=== PATIENT | female | born 1985 | race Caucasian/White ===

== ENCOUNTER 2020-07-31 13:30 | Emergency (ER) | payer BC, SELFPAY ==
[2020-07-31 13:50] VITALS: BP 128/72; PULSE 97; RESP 16; TEMP 36.7; O2SAT 99
--- NOTE | 2020-07-31 14:01 | ED.EAR ---
HPI - Ear Problem General Chief complaint: Ear Stated complaint: earache/facial pain Time Seen by Provider: 07/31/20 13:31 Source: patient Mode of arrival: ambulatory Limitations: no limitations History of Present Illness HPI Narrative: 34-year-old female presents to [facility] with complaints of right ear pain, sinus pressure, runny nose and intermittent fevers for the past week. Patient reports long history of ear infections and has seen ENT in the past. Patient reports that they have discussed placing ear tubes. Patient has been taking [id number] Sudafed with minimal relief. Patient denies cough, wheezing, shortness of breath, nausea, vomiting or diarrhea. MD Complaint: ear pain Location: right ear Duration: constant Severity: mild Discharge from ear: Reports no Treatment prior to arrival: none Related Data Allergies Allergy/AdvReac Type Severity Reaction Status Date / Time No Known Allergies Allergy Verified 07/31/20 13:51 Review of Systems Constitutional: Constitutional: Denies chills, Reports fever(s) and Denies weakness ENT: Denies dysphagia, Denies dizziness, Denies epistaxis and Denies sore throat Comments: Rhinorrhea, right ear pain Respiratory: Respiratory: Denies chest congestion, Denies cough, Denies dyspnea and Denies wheezing Gastrointestinal: Gastrointestinal: Denies abdominal pain, Denies diarrhea, Denies nausea and Denies vomiting Integumentary/Breasts: Skin/Breast: Denies rash PMFSH Past Medical History Medical History (Updated 07/31/20 @ 14:08 by Marie Decker APRN) Cholecystectomy planned Social History Social History (Updated 07/31/20 @ 14:04 by Marie Decker APRN) Smoking status: Never smoker Comments At time of signature, I agree with nursing past medical, surgical, social and family history. There is no relevant family history pertinent to the presenting complaint. Exam Const: General: no acute distress and alert Nutritional Appearance: well nourished Orientation/consciousness: patient oriented x3 HENMT: Head: normal to inspection Ears: TM abnormal with fluid behind the TM on the right; not dull, not erythematous, with no loss of landmarks, with no myringotomy tubes present, not obstructed by cerumen, not perforated, not retracted, not scarred and mobile General nose exam: Normal external nose present and Normal nares present Face and sinus: sinuses nontender Mouth: Yes lip normal and Yes moist mucous membranes Throat: posterior oropharynx normal and uvula midline Neck: Neck: normal visual inspection Resp: Effort & Inspection: normal respiratory effort, not labored, not tachypneic and no use of accessory muscles Auscultation: clear to auscultation bilaterally and no wheezes Cardio: Rate: regular rate Rhythm: regular rhythm Skin: General skin exam: normal color, no jaundice and no pallor Rashes: no rashes Wounds: no wounds Neuro: General: patient oriented x3, moves all extremities and no meningeal signs Psych: Appearance: grossly normal Mental Status: mental status grossly normal Affect: normal affect Attitude: cooperative Thought content: Yes Normal thought content present Course Vital Signs Vital signs: Vital Signs Temperature 36.7 C 07/31/20 13:50 Pulse Rate 97 07/31/20 13:50 Respiratory Rate 16 07/31/20 13:50 Blood Pressure 128/72 07/31/20 13:50 Pulse Oximetry 99 07/31/20 13:50 Temperature 36.7 C 07/31/20 13:50 Pulse Rate 97 07/31/20 13:50 Respiratory Rate 16 07/31/20 13:50 Blood Pressure 128/72 07/31/20 13:50 Pulse Oximetry 99 07/31/20 13:50 Medical Decision Making MDM Narrative Medical decision making narrative: Patient agrees to take medications as prescribed. Patient understands and no antibiotic is needed at this time. Patient agrees to follow-up with ENT if symptoms do not improve Differential Diagnosis Differential Diagnosis: Otitis media, cerumen impaction, acute otalgia Vital Signs Vital Sign
== END 2020-07-31 14:15 | disposition home or self-care (01) ==
PROVIDERS: Emergency Provider Nurse Practitioner Family
DX: H65.01 Acute serous otitis media, right ear (principal)
CPT/HCPCS: 99213; G0463

== ENCOUNTER 2021-05-11 18:22 | Observation (INO) | payer BC, SELFPAY ==
[2021-05-11] VITALS (7 sets, daily range): BP systolic 99–112; BP diastolic 65–78; PULSE 88–125; BMI 31.0
--- NOTE | 2021-05-11 18:22 | OBADM ---
This patient, Kiera Raman, admitted to the OB room Labor/Delivery/Recovery 118 for observation. Patient/family oriented to hospital policies and general routines including ID bracelet, bed and alarms, visiting hours, pain management, procedures, bathroom and other care routines, personal items, smoking policy, room service/diet, and visiting hours. Patient/Family are encouraged to report perceived risks to care and to ask questions if they do not understand what they are told or what they should do.
[2021-05-11 20:22] LABS: Add Urine Microscopic? YES; Appearance Urine Cloudy (Clear); Bacteria Urine Trace /hpf; Bilirubin Urine Negative (Negative); Blood Urine Negative (Negative); Color Urine Yellow (Yellow); Glucose Urine UA Negative (Negative); Ketones Urine 2+ mg/dL (Negative); Leukocyte Esterase Ur 2+ LEU/UL (NEGATIVE); Mucus Urine Rare /lpf; Nitrate Urine Negative (Negative); Protein Urine Negative (Negative); Squamous Epithelial Cell Urine Many /hpf (Few); Urobilinogen Urine Negative mg/dL (<2.0)
[2021-05-11] MEDS: NITROFURANTOIN MONOHYD MACROCR 100 MG CAP (21:02)
--- NOTE | 2021-05-31 10:08 | P.PNOB_ITS ---
OB - Triage/Final Diagnosis Visit Information Comments/Additional reasons for admission: I have assessed the risk for this patient, Kiera Raman, and determined that she would benefit from observation care. Evaluation Laboratory results: Laboratory Tests 05/11/21 20:04 Urine Color Yellow Urine Appearance Cloudy H Urine pH 6.0 Ur Specific [place] 1.010 Urine Protein Negative Urine Glucose (UA) Negative Urine Ketones 2+ H Ur Blood (Man) Negative Urine Nitrate Negative Urine Bilirubin Negative Urine Urobilinogen Negative Ur Leukocyte Esterase 2+ H Urine RBC 3-5 H Urine WBC 10-15 H Ur Squamous Epith Cells Many H Urine Bacteria Trace Urine Mucus Rare Final Diagnosis (1) False labor: Code(s): O47.9 - False labor, unspecified Status: Acute
== END 2021-05-11 21:00 | disposition home or self-care (01) ==
PROVIDERS: Advanced Practice Midwife; Admitting Provider Obstetrics & Gynecology; Visit Provider Obstetrics & Gynecology
DX: O47.03 False labor before 37 completed weeks of gestation, third trimester (principal); Z3A.33 33 weeks gestation of pregnancy
CPT/HCPCS: 81001; 87077; 87086; 87088; A9270; G0378; G0379

== ENCOUNTER 2021-06-16 06:05 | Inpatient (IN) | payer BC, SELFPAY ==
[2021-06-15 08:52] VITALS: RESP 16
--- NOTE | 2021-06-15 10:32 | WPDANESEPPF ---
Anes - Initial Pre Proc Eval Procedure: Operation Date: 06/16/21 07:30 Proposed Procedures p Repeat Section - Dary Valle MD Date/Time: 06/15/21 10:32 Surgeon: Dary Valle MD Pre Op Diagnosis: previous csection, Patient Data Age: 35 Gender: F Height: Weight: Allergies Allergy/AdvReac Type Severity Reaction Status Date / Time No Known Allergies Allergy Verified 08/06/20 11:34 Home Medications Medication Instructions Recorded Confirmed Type PNV cmb#95-ferrous fumarate-FA 1 tablet PO DAILY 06/12/21 06/12/21 History [] Patient hx anesthesia problems: none Family hx anesthesia problems: none PMFSH Past Medical History Medical History (Updated 06/15/21 @ 10:33 by Helder Whitlock DO) Anxiety Cholecystectomy planned Surgical History Surgical History (Updated 06/15/21 @ 10:33 by Helder Whitlock DO) History of sleeve gastrectomy Family History Family History Mother Hypertension Lymphoma Social History Social History (System 08/06/20 @ 11:34 by Laury Rutledge) Smoking status: Never smoker Alcohol intake: current Substance use: never Spiritual care concerns: No Anes - Eval Final PreProcedure Day of Procedure 06/15/21 10:32 Patient weight: obese Heart: regular rate and rhythm Lungs: clear to auscultation and normal air movement Airway: Mallampati scale class II Neurological: alert and oriented Last oral intake: >/= 8 hours ASA classification: II Emergent: no Anesthetic plan: proceed Anesthesia type and monitoring: regional spinal and standard monitoring Informed Consent: The patient's anesthetic plan and its attendant risks and benefits were discussed with the patient/family/POA. Questions were solicited and answers provided to the satisfaction of the patient/family/POA.
[2021-06-16] VITALS (58 sets, daily range): BP systolic 100–154; BP diastolic 49–113; PULSE 64–118; RESP 14–18; TEMP 36.1–36.7; O2SAT 95–100; BMI 31.0
--- NOTE | 2021-06-16 06:28 | LDADM ---
This patient, Kiera Raman, was admitted to Labor/Delivery/Recovery 120 on 06/16/21 at 06:05. Plans for labor, pain management and were discussed with patient. Patient/family oriented to hospital policies and general routines including ID bracelet, bed and alarms, visiting hours, pain management, procedures, bathroom and other care routines, personal items, smoking policy, room service/diet and guest tray routines, security routines, and visiting hours. Patient/Family are encouraged to report perceived risks to care and to ask questions if they do not understand what they are told or what they should do. See OBIX for further documentation.
[2021-06-16] MEDS: LACTATED RINGERS 1,000 ML 125 ML IV CONT (06:56)
[2021-06-16 07:05] LABS: Basophils Percent Auto 0.6 % (0.2-1.2); Eosinophils Percent Auto 0.6 % (0-4.4); Hematocrit 36.5 % (37.0-47.0); Hemoglobin 11.8 g/dL (12.0-15.0); Immature Granulocyte Absolute 0.02 K/mm3 (0.00-0.031); Immature Granulocyte Percent A 0.4 % (0-0.5); Lymphocytes Absolute Auto 1.74 K/mm3 (0.9-3.2); Lymphocytes Percent Auto 36.9 % (18.3-44.2); Mean Corpuscular HGB Conc 32.3 g/dl (32-36); Mean Platelet Volume 9.2 fl (7.4-10.4); Monocytes Absolute Auto 0.5 K/mm3 (0.1-0.6); Monocytes Percent Auto 9.7 % (2.6-8.5); Neutrophils Absolute Auto 2.4 K/mm3 (1.3-6.7); Neutrophils Percent Auto 51.8 % (45.5-73.1); Platelet Count Result 149 k/mm3 (150-375); Red Blood Count 3.58 M/mm3 (4.2-5.4); Red Cell Distribution Width 12.7 % (11.5-14.5); White Blood Count 4.7 K/mm3 (4.5-10.0)
--- NOTE | 2021-06-16 07:22 | PM.IMHP ---
H&P: HPI History of Present Illness Date/Time: 06/16/21 07:22 this patient is a 35-year-old multiparous female with a previous delivery who is at 39 weeks gestation. Have agreed to perform repeat delivery. She understands there is risk of injuring that injuries can result in hospitalization, more surgery, and severe illness. She denies any nausea, vomiting, fever, chills. She denies any chest pain or shortness of breath. She denies any nausea, vomiting, fever, chills. She denies any contractions, loss of fluid or vaginal bleeding. Chief Complaint: Term Review of Systems Review of Systems: All systems reviewed & are unremarkable except as noted in HPI and below PMFSH Past Medical History Medical History (Updated 06/16/21 @ 07:24 by Dary Valle MD) Anxiety Cholecystectomy planned Surgical History Surgical History (Updated 06/16/21 @ 07:24 by Dary Valle MD) History of sleeve gastrectomy Family History Family History Mother Hypertension Lymphoma Social History Social History (System 08/06/20 @ 11:34 by Laury Rutledge) Smoking status: Never smoker Alcohol intake: current Substance use: never Spiritual care concerns: No Meds Home Medications and Allergies Home Medications Medication Instructions Recorded Confirmed Type PNV cmb#95-ferrous fumarate-FA 1 tablet PO DAILY 06/12/21 06/12/21 History [] Allergies Allergy/AdvReac Type Severity Reaction Status Date / Time No Known Allergies Allergy Verified 08/06/20 11:34 Vital Signs Vital Signs - 24 hr 06/16/21 06:28 Pulse Rate 112 H Blood Pressure 116/84 Exam Const: General: healthy appearing, comfortable and no acute distress Resp: Auscultation: clear to auscultation bilaterally, no rales, no rhonchi and no wheezes Cardio: Rate: regular rate Heart sounds: no click, no murmurs and no rubs GI: Inspection: non-distended Auscultation: normal bowel sounds Extrem: General: normal to inspection, no pedal edema and no calf tenderness H&P: Results Labs Labs: Short CBC 06/16/21 Range/Units 06:25 WBC 4.7 (4.5-10.0) K/mm3 Hgb 11.8 L (12.0-15.0) g/dL Hct 36.5 L (37.0-47.0) % Plt Count 149 L (150-375) k/mm3 Assessment and Plan Assessment and plan (1) Previous delivery affecting : Code(s): O34.219 - Maternal care for unspecified type scar from previous delivery Status: Acute (2) Term : Code(s): Z34.90 - Encounter for supervision of normal , unspecified, unspecified trimester Status: Acute Additional Plan This patient is a 35-year-old multiparous female with a previous delivery who has a term gestation. We have agreed to perform repeat delivery. She understands the risks, benefits, and alternatives. She has completed the informed consent process is ready to proceed.
--- NOTE | 2021-06-16 07:25 | WPDHPUPDATE1 ---
History and Physical Update Update Date/Time: 06/16/21 07:25 History and Physical has been reviewed, including an updated exam of the patient. There are NO changes in the patient's condition. Risks, benefits, and alternatives have been discussed and questions answered. Patient agrees to proceed with procedure.
[2021-06-16] MEDS: ceFAZolin 2 GM/D5W 50 ML 2 GM/50 ML BAG IVPB (07:38)
--- NOTE | 2021-06-16 08:37 | P.OP_ITS ---
Procedure Note - Detailed Date of Procedure 06/16/21 Pre-op Diagnosis previous csection, Post-op Diagnosis same Procedure Performed Low-transverse section Surgeon Dary Valle MD Anesthesia spinal Indications previous Findings Normal gestational maternal anatomy, average size infant, normal Apgars. Description of Procedure The patient was taken the operating room. She was prepped and draped in dorsal supine position with a leftward tilt. This was done after spinal anesthetic was applied. A low-transverse skin incision was made and carried down till of the fascia with the knife. The fascial incision was made with the knife. The fascial incision was extended laterally with May scissors. The fascia was tented upward superiorly and inferiorly the rectus muscles were dissected off bl untly. The rectus muscles were the midline. The preperitoneal fat and peritoneum were dissected open bluntly at the superior aspect of the rectus muscles. The peritoneal incision was extended superior and inferior with good position of bladder. The uterine incision was made with a scalpel down to the level of the amniotic cavity. The amniotic cavity was entered bluntly. The infant was delivered. The cord was clamped and cut and the infant was handed off to waiting pediatric staff. Cord bloods were obtained. The placenta was removed manually. The uterus was exteriorized. The uterus was cleared of all clots, debris and membranes. The uterus was closed in 0 Vicryl running lock fashion. An imbricating over a was placed along the incision line as well. The uterus was returned to the abdomen. The gutters were cleared of all clots and debris. The fascia was closed with 0 Vicryl running fashion. The subcutaneous tissue was irrigated pinpoint bleeders were c auterized. The skin was closed with subcuticular absorbable juanita. The skin incision line was covered with glue. The patient tolerated the procedure well. She has taken recovery room in stable condition. Sponge lap and needle counts were correct x2. Estimated Blood Loss 500 Pathology none sent Complications No immediate complications Condition stable Disposition PACU
[2021-06-16] MEDS: OXYTOCIN 30 UNITS/NS 500 ML 30 UNITS/500 ML BAG 125 UNITS IV CONT (08:54)
[2021-06-16 09:47] LABS: Rapid Plasma Reagin Non-Reactive (NonReactive)
[2021-06-16] MEDS: diphenhydrAMINE HCl INJ 50 MG/ML VIAL 25 MG IV PUSH (09:54)
[2021-06-16] MEDS: PROMETHAZINE HCL 25 MG/ML AMPUL 12.5 MG IV PUSH (10:28)
[2021-06-16] MEDS: KETOROLAC 30 MG/ML VIAL (*BKC) IV PUSH ×2 (10:48→20:17)
--- NOTE | 2021-06-16 12:15 | PC.NURSE ---
Mother called out for assist with feeding, reporting using a nipple shield for the first feeding. Mother breastfed first child using a shield for several months. . Infant is able to freely thrust tongue past gum ridge and flange both lips. Skin is intact on both nipples are inverted with low profile and firm, no redness and bruising noted. Discussed nipple shield precautions and possible complications. Instructions given on application and cleaning of shield. Patient able to return demonstration on proper application of shield. Discussed the need to initiate pumping if infant continues to nurse with the shield. Patient verbalizes understanding. Reviewed infant feeding cues, frequencies, duration of feedings, feeding elimination flow sheet, and signs of adequate intake. Demonstrated stimulation techniques to wake infant for feeding. Assisted with to breast. Reviewed positioning/alignment in cross cradle, holding breast in ?U? hold and guided asymmetrical latch on. Reviewed rational for each. Mother began with N&V discontinued until mother is ready. .
[2021-06-16] MEDS: ONDANSETRON INJ 4 MG/2 ML VIAL IV PUSH ×2 (12:35→19:45)
[2021-06-16] MEDS: DEXTROSE 5%/0.45% SOD CHL 1,000 ML 125 ML IV CONT (13:45)
[2021-06-16] MEDS: SCOPOLAMINE 1.5 MG PATCH TRANSDERM (17:00)
[2021-06-16] MEDS: METOCLOPRAMIDE HCL INJ 10 MG/2 ML VIAL IV PUSH (20:39)
[2021-06-16] MEDS: ALPRAZolam (*CRX) 0.5 MG TABLET PO (20:39)
[2021-06-16] MEDS: KCL 20 MEQ/D5/0.45% SOD CHL 1,000 ML 125 ML IV CONT (22:16)
[2021-06-17 00:30] VITALS: BP 86/49; PULSE 65; RESP 16; TEMP 36.3; O2SAT 100
[2021-06-17] MEDS: KETOROLAC 30 MG/ML VIAL (*BKC) IV PUSH (03:55)
[2021-06-17] MEDS: METOCLOPRAMIDE HCL INJ 10 MG/2 ML VIAL IV PUSH (03:55)
[2021-06-17] MEDS: HYDROcodone/acetaminophen (*CRX) 5-325 MG TABLET 1 TAB PO ×5 (03:56→17:53)
[2021-06-17 04:25] VITALS: BP 97/64; PULSE 68; RESP 14; TEMP 36.4; O2SAT 99
[2021-06-17 04:44] LABS: Eosinophils Percent Auto 0.2 % (0-4.4); Hematocrit 30.2 % (37.0-47.0); Hemoglobin 9.9 g/dL (12.0-15.0); Immature Granulocyte Absolute 0.01 K/mm3 (0.00-0.031); Immature Granulocyte Percent A 0.2 % (0-0.5); Lymphocytes Absolute Auto 0.95 K/mm3 (0.9-3.2); Lymphocytes Percent Auto 16.4 % (18.3-44.2); Mean Corpuscular HGB Conc 32.8 g/dl (32-36); Mean Corpuscular Hemoglobin 33.4 pg (26-34); Mean Platelet Volume 9.8 fl (7.4-10.4); Monocytes Absolute Auto 0.6 K/mm3 (0.1-0.6); Monocytes Percent Auto 10.5 % (2.6-8.5); Neutrophils Absolute Auto 4.2 K/mm3 (1.3-6.7); Neutrophils Percent Auto 72.7 % (45.5-73.1); Platelet Count Result 128 k/mm3 (150-375); Red Blood Count 2.96 M/mm3 (4.2-5.4); Red Cell Distribution Width 12.4 % (11.5-14.5); White Blood Count 5.8 K/mm3 (4.5-10.0)
[2021-06-17] MEDS: MULTIVIT/MIN/PREN/FOL AC/IRON TABLET 1 TAB PO (07:38)
[2021-06-17] MEDS: POLYSACCHARIDE IRON COMPLEX 150 MG CAPSULE PO ×2 (07:38→17:59)
[2021-06-17] MEDS: DOCUSATE SODIUM 100 MG CAPSULE PO ×2 (07:39→17:53)
[2021-06-17 07:55] VITALS: BP 109/82; PULSE 74; RESP 16; TEMP 36.1; O2SAT 100
--- NOTE | 2021-06-17 08:16 | PM.OBPNVD ---
OB - PN: Subj Subjective Date/time seen: 06/17/21 08:16 Patient comments: no complaints, pain well controlled, incisional pain, tolerating diet and flatus present OB - PN: Obj Data Labs CBC & Chem 7: 06/17/21 04:14 Labs: Laboratory Results - last 24 hr 06/16/21 06/16/21 06/17/21 06:25 06:25 04:14 WBC 5.8 RBC 2.96 L Hgb 9.9 L Hct 30.2 L MCV 102.0 H MCH 33.4 MCHC 32.8 RDW 12.4 Plt Count 128 L MPV 9.8 Immature Gran % (Auto) 0.2 Neut % (Auto) 72.7 Lymph % (Auto) 16.4 L Granite % (Auto) 10.5 H Eos % (Auto) 0.2 Baso % (Auto) 0.0 L Lymph # (Auto) 0.95 Granite # (Auto) 0.6 Eos # (Auto) 0.0 Baso # (Auto) 0.0 Abs Immat Gran (auto) 0.01 Absolute Neuts (auto) 4.2 Absolute Nucleated RBC 0.0 Nucleated RBC % 0.0 RPR Non-reactive Blood Type O Positive Antibody Screen Negative OB - PN A/P Plan day: 2 Plan: routine care Comments: POD#2 LTCS - no problems, Time Spent With Patient Time: Total time spent is greater than 50% in coordination of care (as documented) at patient's floor/unit and/or counseling patient: Exam Const: General: comfortable, no acute distress and alert Resp: Effort & Inspection: normal respiratory effort Auscultation: no crackles, no rales and no rhonchi Cardio: Rate: regular rate Heart sounds: no click, no murmurs and no rubs GI: Inspection: non-distended GI Palp: No Tenderness to palpation present (GI) Auscultation: normal bowel sounds Other: Incision - CDI Extrem: General: normal to inspection, no pedal edema and no calf tenderness
--- NOTE | 2021-06-17 08:47 | WPDANESPN ---
Anes - Prog Note Post-Op Date/Time: 06/17/21 08:47 Cardiovascular status: normal Respiratory status: normal Airway patency: baseline Mental status: baseline Post-Op hydration status: normal Vital Signs: Last Vital Signs Temp 97.5 F L 06/17/21 04:25 Pulse 68 06/17/21 04:25 Resp 14 06/17/21 04:25 BP 97/64 L 06/17/21 04:25 Pulse Ox 99 06/17/21 04:25 Pain Score (VAS): 0 I/O: Intake & Output 06/16/21 06/17/21 06/17/21 23:59 07:59 15:59 Intake Total 1170 Output Total 650 1350 Balance -650 -180 Laboratory Tests 06/17/21 04:14 06/16/21 06/17/21 06:25 04:14 WBC 5.8 RBC 2.96 L Hgb 9.9 L Hct 30.2 L MCV 102.0 H MCH 33.4 MCHC 32.8 RDW 12.4 Plt Count 128 L MPV 9.8 Immature Gran % (Auto) 0.2 Neut % (Auto) 72.7 Lymph % (Auto) 16.4 L [place] % (Auto) 10.5 H Eos % (Auto) 0.2 Baso % (Auto) 0.0 L Lymph # (Auto) 0.95 [place] # (Auto) 0.6 Eos # (Auto) 0.0 Baso # (Auto) 0.0 Abs Immat Gran (auto) 0.01 Absolute Neuts (auto) 4.2 Absolute Nucleated RBC 0.0 Nucleated RBC % 0.0 RPR Non-reactive Post-procedural complaints: none Patient Feedback: Patient satisfied with anesthetic care.
--- NOTE | 2021-06-17 08:48 | WPDANLDPN2 ---
Anes-Prog Note L&D Date/Time: 06/17/21 08:48 Comfortable throughout: section Neuraxial method: spinal Epidural/Spinal procedure site: clean & non-tender Neuro status: Neuro function grossly intact. Cardiovascular status: normal Respiratory status: normal Airway patency: baseline Mental status: baseline Post-Op hydration status: normal Vital Signs: Last Vital Signs Temp 97.5 F L 06/17/21 04:25 Pulse 68 06/17/21 04:25 Resp 14 06/17/21 04:25 BP 97/64 L 06/17/21 04:25 Pulse Ox 99 06/17/21 04:25 Pain score (VAS): 0 I/O: Intake & Output 06/16/21 06/17/21 06/17/21 23:59 07:59 15:59 Intake Total 1170 Output Total 650 1350 Balance -650 -180 Post-procedural complaints: none Patient feedback: Patient satisfied with anesthetic care.
--- NOTE | 2021-06-17 08:49 | WPDANLDNPN2 ---
Anes-Prog Note L&D-Neuraxial Date/Time: 06/17/21 08:49 Neuraxial medications: intrathecal PF morphine Opiod-related complaints: none Patient feedback: Patient satisfied with post-operative pain management.
--- NOTE | 2021-06-17 12:07 | PCCCNOTE ---
Care Coordination. Pt. referred to Care coordination for FOB not involved and unwanted . Met with pt. and her mother at bedside at length. Pt. reports her thoughts of possible adoption were in the very beginning of that she plans to parent infant. She reports having all necessary baby care items. Her mother is staying with her for a little bit and she has supportive neighbors. Pt. also has 10 year old at home that she reports will be helpful as well. She plans to breast feed and reports over-resourced for WIC services, but is frugal. Discussed resources and she didn't feel she would need them. Also offered counseling information, but pt. did not feel it would be needed. No further CC needs.
--- NOTE | 2021-06-17 13:05 | PC.NURSE ---
Consult with pt., mother states she wishes to pump and bottle feed. Mother reports she is frustrated with nipple shield use and does not find putting infant to breast relaxing and is very stressed all feedings. In discussion mother appears to have doubts if she is doing the right for her and . Suggested mother attempt the pump and bottle a few feedings and return to breast using the nipple shield if she chooses. Reviewed breast pump care and usage, pumping schedule, nipple care, and collection and storage of breast milk. Encouraged [id number], breast massage and manual expression to stimulate supply. Patient verbalizes and demonstrates understanding of instructions.
--- NOTE | 2021-06-17 19:01 | PC.NURSE ---
unable to reassess pain after 1752 pain med given because EMAR not coming up.
[2021-06-17 20:00] VITALS: BP 103/59; PULSE 84; RESP 18; TEMP 37; O2SAT 98
[2021-06-17] MEDS: HYDROcodone/acetaminophen (*CRX) 10-325 MG TABLET 1 TAB PO ×2 (20:01→23:35)
[2021-06-18] MEDS: HYDROcodone/acetaminophen (*CRX) 10-325 MG TABLET 1 TAB PO ×2 (03:10→08:21)
--- NOTE | 2021-06-18 08:20 | PC.NURSE ---
Consult with pt., mother continues to pump regularly without difficulties or discomfort. Mother has a Medela and Spectra pump for home use. Discussed flange size to transition to home use. Reviewed milk should transition in within a few days and slowly increase. Discussed transitioning over to bottle feeding expressed milks. Mother is feeding as required and waking infant to feed if needed. has nippled without issue and is currently meeting outcomes for weight, output, jaundice and feeding frequencies. Mother is feeding as much as she desires. Mother states she feels confident to continue current plan to pump and bottle feed at home. Reviewed transition to breast milk, signs of adequate intake, and engorgement/relief. Reviewed regular medications mother is taking. Information provided per Rosette. Reviewed community resources on the [employer] website and in the Mom/Baby guide. Information on outpatient services provided. Mother has no further questions at this time.
[2021-06-18] MEDS: DOCUSATE SODIUM 100 MG CAPSULE PO ×2 (08:21→17:20)
[2021-06-18] MEDS: MULTIVIT/MIN/PREN/FOL AC/IRON TABLET 1 TAB PO (08:21)
--- NOTE | 2021-06-18 08:23 | PM.OBPNVD ---
OB - PN: Subj Subjective Date/time seen: 06/18/21 08:23 Patient comments: no complaints, pain well controlled, incisional pain, tolerating diet and flatus present OB - PN: Obj Data Labs CBC & Chem 7: 06/17/21 04:14 OB - PN A/P Plan day: 2 Plan: routine care Comments: POD#2 LTCS - no problems, Time Spent With Patient Time: Total time spent is greater than 50% in coordination of care (as documented) at patient's floor/unit and/or counseling patient: Exam Const: General: comfortable, no acute distress and alert Resp: Effort & Inspection: normal respiratory effort Auscultation: no crackles, no rales and no rhonchi Cardio: Rate: regular rate Heart sounds: no click, no murmurs and no rubs GI: Inspection: non-distended GI Palp: No Tenderness to palpation present (GI) Auscultation: normal bowel sounds Other: Incision - CDI Extrem: General: normal to inspection, no pedal edema and no calf tenderness
[2021-06-18 08:25] VITALS: BP 128/89; PULSE 83; RESP 16; TEMP 36.9; O2SAT 100
[2021-06-18] MEDS: POLYSACCHARIDE IRON COMPLEX 150 MG CAPSULE PO ×2 (08:32→17:20)
[2021-06-18] MEDS: ALPRAZolam (*CRX) 0.5 MG TABLET PO ×2 (10:08→17:28)
[2021-06-18] MEDS: oxyCODONE/ACETAMINOPHEN (*CRX) 5-325 MG TABLET 1 TABLET PO ×2 (12:48→13:38)
--- NOTE | 2021-06-18 14:02 | PC.NURSE ---
1335 Pt started Percocet for pain, as ordered this a.m., at 1248, and now states she can tell it is already working better for pain relief than the Lipan. She chose to take the second pill, as ordered, to get even better pain control. Pt also given an abdominal binder for extra support when she is out of bed.
[2021-06-18] MEDS: oxyCODONE/ACETAMINOPHEN (*CRX) 5-325 MG TABLET 2 TABLET PO ×2 (17:21→22:05)
[2021-06-18 20:30] VITALS: BP 115/75; PULSE 94; RESP 16; TEMP 36.2; O2SAT 98
[2021-06-19] MEDS: oxyCODONE/ACETAMINOPHEN (*CRX) 5-325 MG TABLET 2 TABLET PO ×2 (03:52→08:20)
[2021-06-19 07:55] VITALS: BP 124/63; PULSE 87; RESP 16; TEMP 36.6; O2SAT 100
--- NOTE | 2021-06-19 08:06 | PM.OBPNVD ---
OB - PN: Subj Subjective Date/time seen: 06/19/21 08:06 Patient comments: no complaints, pain well controlled, incisional pain, tolerating diet and flatus present OB - PN: Obj Data Labs CBC & Chem 7: 06/17/21 04:14 OB - PN A/P Plan day: 3 Plan: routine care, discharge home and other Comments: Incision check in one week. Given precautions Time Spent With Patient Time: Total time spent is greater than 50% in coordination of care (as documented) at patient's floor/unit and/or counseling patient: Exam Const: General: comfortable, no acute distress and alert Resp: Effort & Inspection: normal respiratory effort Auscultation: no crackles, no rales and no rhonchi Cardio: Rate: regular rate Heart sounds: no click, no murmurs and no rubs GI: Inspection: non-distended GI Palp: No Tenderness to palpation present (GI) Auscultation: normal bowel sounds Other: Incision - CDI Extrem: General: normal to inspection, no pedal edema and no calf tenderness
--- NOTE | 2021-06-19 08:07 | PM.OBDSVD ---
DS: Admitting Diagnosis Discharge Date 06/19/2021 Admitting Diagnosis term , previous csection DS: Discharge Diagnosis Discharge Diagnosis (1) Term : Code(s): Z34.90 - Encounter for supervision of normal , unspecified, unspecified trimester Status: Acute (2) Previous delivery affecting : Code(s): O34.219 - Maternal care for unspecified type scar from previous delivery Status: Acute OB - DS: Summary OB Procedures : NST and Ultrasound OB Procedures Intrapartum: OB Procedures: : None Peripartum Data Infant Delivery Method: Section Procedures: Procedures Operation Date: 06/16/21 07:30 Actual Procedure Side Surgeon p Repeat Section Dary Valle MD Time Spent with Patient Time attestation: Total time spent providing and/or coordinating discharge services: Discharge Plan Discharge Discharging Clinician: Dary Valle Patient Disposition: Home, Self-Care Activity: pelvic rest Diet: regular Patient Instructions: Antibiotic Form Stand Alone Forms: General Discharge Information Follow-up/Referrals: Dary Valle MD [Physician] - Discharge Medications: New hydrocodone-acetaminophen 5-325 mg tablet 1 - 2 tablet PO Q4H PRN (Reason: pain) Qty: 25 RF: 0 Continued PNV cmb#95-ferrous fumarate-FA [] 28 mg iron- 800 mcg Tablet 1 tablet PO DAILY RF: 0 Date of admission: 06/16/21 06:05 Primary Care Provider: PHYSICIAN,CLOTHING PATTERN PREPARER Admitting Provider: Dary Valle Attending physician on admission: Dary Valle Condition: Stable
[2021-06-19] MEDS: POLYSACCHARIDE IRON COMPLEX 150 MG CAPSULE PO (08:20)
[2021-06-19] MEDS: MULTIVIT/MIN/PREN/FOL AC/IRON TABLET 1 TAB PO (08:20)
[2021-06-19] MEDS: DOCUSATE SODIUM 100 MG CAPSULE PO (08:20)
--- NOTE | 2021-06-19 09:30 | PC.NURSE ---
Mother states she will continue with pumping and bottle feeding. Mother is currently pumping without difficulties or discomfort after each feeding and feels her milk is transitioning in. Mother is feeding as required and waking to feed if needed. Infant is nippling formula/EBM without issue, mother will increase volume as desires. is currently meeting outcomes for weight, output, jaundice and feeding frequencies. Mother states she feels confident to continue pumping and bottle feeding at home. Reviewed transition to breast milk, signs of adequate intake, and engorgement/relief. Instructed to call ICP if intake/output less than required. Reviewed regular medications mother is taking. Information provided per Rosette. Reviewed community resources on the [facility] website and in the Mom/Baby guide. Information on outpatient services provided. Mother has no further questions at this time.
--- NOTE | 2021-06-19 10:00 | PC.NURSE ---
Patient instructed to view the discharge video Mother & Baby Care, The First Two Weeks . Patient was given the opportunity and encouraged to ask questions. Patient verbalized understanding of information shared and has been given the mother/baby guide for home reference.
== END 2021-06-19 11:30 | disposition home or self-care (01) | DRG 788 ==
LOC: ANHLDR 06:53 → ANHOB2 11:45
PROVIDERS: Admitting Provider Obstetrics & Gynecology; Visit Provider Obstetrics & Gynecology
PROC: 10D00Z1 Extraction of Products of Conception, Low, Open Approach (ICD-10-PCS; CPT 59514; principal; 2021-06-16 07:30)
DX: O34.211 Maternal care for low transverse scar from previous cesarean delivery (principal); Z37.0 Single live birth; Z3A.39 39 weeks gestation of pregnancy; O99.214 Obesity complicating childbirth; E66.9 Obesity, unspecified; O99.344 Other mental disorders complicating childbirth; F41.9 Anxiety disorder, unspecified
CPT/HCPCS: 36415; 85025; 86592; 86850; 86900; 86901; A9270; J0690; J1100; J1165; J1200; J1885; J2274; J2405; J2550; J2590; J2765; J3480; J7120

== ENCOUNTER 2021-08-13 21:48 | Emergency (ER) | payer BC, SELFPAY ==
[2021-08-13 21:57] VITALS: BP 142/95; PULSE 89; RESP 16; TEMP 36.7; O2SAT 100
--- NOTE | 2021-08-13 23:16 | PC.NURSE ---
Pt. refuses to change into gown; does not want to give urine specimen because I don't think I need it but agreed to give one since has to void. Attempted to direct pt. to bathroom and give directions for clean catch; pt. refuses stating I am not an idiot . Pt. asked about charging her phone.
[2021-08-13 23:33] VITALS: BP 146/99; PULSE 91; RESP 18; O2SAT 99
--- NOTE | 2021-08-14 00:04 | ED.PSYCH ---
HPI - Psych General Chief Complaint: Psychiatric Symptoms Stated Complaint: depression Time Seen by Provider: 08/13/21 23:20 Source: patient Mode of arrival: EMS Limitations: no limitations History of Present Illness HPI Narrative: 35-year-old female Here for assessment for depression Patient indicates that she has fairly mild symptoms mostly insomnia along with some forgetfulness and once in a while feeling like someone is calling her name when they are not She is not having any trouble taking care of her 2-month-old or her 10-year-old Patient states that her sister who she normally is not in touch with maliciously called the police in an effort to get her kids taken away from her Patient says she has no other psych history, drinks an occasional glass of red wine, is employed, does not use other illicit substances, and has no SI or HI In addition to the recent and delivery she says she has had a sequence of kind of unfortunate relationships, got , became virtually immediately upon dating a new fellow, broke up with him, next boyfriend after that just broke up with her, and one of the hearing dog trainer who were called her house is somebody else she had dated which made things uncomfortable all around She does not have any medical problems or complaints Related Data Home Medications Medication Instructions Recorded Confirmed PNV cmb#95-ferrous fumarate-FA 1 tablet PO DAILY 06/12/21 06/12/21 [] Allergies Allergy/AdvReac Type Severity Reaction Status Date / Time No Known Allergies Allergy Verified 08/06/20 11:34 Review of Systems Review of Systems: All systems reviewed & are unremarkable except as noted in HPI and below Constitutional: Constitutional: Reports no additional constitutional complaints, Denies chills, Denies fever(s) and Denies headache(s) Eyes: Eyes: Reports no additional eye complaints and Denies change in vision ENT: Denies headache(s) and Denies sore throat Cardiovascular: Cardiovascular: Denies chest pain and Denies dyspnea Respiratory: Respiratory: Denies cough and Denies dyspnea Gastrointestinal: Gastrointestinal: Denies abdominal pain, Denies diarrhea and Denies vomiting Genitourinary: Genitourinary: Denies urinary frequency and Denies dysuria Musculoskeletal: Musculoskeletal: Denies deformity, Denies arthralgias, Denies joint swelling and Denies numbness Integumentary/Breasts: Skin/Breast: Denies rash and Denies wounds Neurologic: Denies headache(s), Denies focal weakness and Denies numbness Psychiatric: Psychiatric: Reports as per HPI and Reports depression Endocrine: Endocrine: Reports no additional endocrine complaints Hematologic/Lymphatic: Hematologic/Lymphatic: Reports no additional hematologic/lymphatic complaints Allergic/Immunologic: Allergic/Immunologic: Reports no additional allergic/immunologic complaints PMFSH Past Medical History Medical History Anxiety Cholecystectomy planned Surgical History Surgical History History of sleeve gastrectomy Family History Family History Mother Hypertension Lymphoma Social History Social History Smoking status: Never smoker Alcohol intake: current Substance use: never Substance use type: does not use Spiritual care concerns: No Exam Const: General: cooperative, no acute distress and alert Orientation/consciousness: patient oriented x3 (alert) HENMT: Head: normal to inspection, normocephalic and atraumatic Ears: external ears normal General nose exam: no epistaxis Eyes: Conjunctivae: conjunctivae normal EOM: EOMs intact bilaterally Neck: Neck: normal visual inspection, supple and no JVD Resp: Effort & Inspection: normal respiratory effort and not labored A
[2021-08-14 01:00] LABS: Basophils Percent Auto 0.5 % (0.2-1.2); Eosinophils Absolute Auto 0.1 K/mm3 (0-0.3); Eosinophils Percent Auto 0.8 % (0-4.4); Hematocrit 42.7 % (37.0-47.0); Hemoglobin 14.1 g/dL (12.0-15.0); Immature Granulocyte Absolute 0.01 K/mm3 (0.00-0.031); Immature Granulocyte Percent A 0.2 % (0-0.5); Lymphocytes Percent Auto 39.5 % (18.3-44.2); Mean Corpuscular Hemoglobin 33.9 pg (26-34); Mean Corpuscular Volume 102.6 fl (80-100); Mean Platelet Volume 8.8 fl (7.4-10.4); Monocytes Absolute Auto 0.7 K/mm3 (0.1-0.6); Monocytes Percent Auto 11.2 % (2.6-8.5); Neutrophils Absolute Auto 3.2 K/mm3 (1.3-6.7); Neutrophils Percent Auto 47.8 % (45.5-73.1); Platelet Count Result 229 k/mm3 (150-375); Red Blood Count 4.16 M/mm3 (4.2-5.4); Red Cell Distribution Width 13.4 % (11.5-14.5); White Blood Count 6.6 K/mm3 (4.5-10.0)
[2021-08-14 01:07] LABS: Add Urine Microscopic? YES; Appearance Urine Cloudy (Clear); Bilirubin Urine Negative (Negative); Blood Urine Negative (Negative); Color Urine Yellow (Yellow); Glucose Urine UA Negative (Negative); Ketones Urine Trace mg/dL (Negative); Leukocyte Esterase Ur Trace LEU/UL (Negative); Mucus Urine Few /lpf; Nitrate Urine Negative (Negative); Protein Urine 1+ mg/dL (Negative); RBC Urine 0-2 /hpf (0-2); Specific Grav Ur 1.027 (1.001-1.035); Squamous Epithelial Cell Urine Many /hpf (Few)
[2021-08-14 01:13] LABS: Ethanol 151 mg/dL (<10)
[2021-08-14 01:14] LABS: Alanine Aminotransferase 66 U/L (4-35); Albumin Level 4.3 g/dL (3.5-5.1); Alkaline Phosphatase 120 U/L (38-126); Anion Gap 11 mmol/L (8-16); Aspartate Amino Transferase 74 U/L (14-36); Bilirubin,Total 0.4 mg/dL (0.2-1.3); Blood Urea Nitrogen 5 mg/dL (7-17); Calcium 9.2 mg/dL (8.4-10.2); Carbon Dioxide 30 mmol/L (22-30); Chloride 102 mmol/L (98-107); Estimated CRCL calculation 117 ml/min; Estimated Glomerular Filt Rate > 60; Glucose 92 mg/dL (65-110); Potassium 3.6 mmol/L (3.4-5.0); Sodium 143 mmol/L (137-145)
[2021-08-14 01:17] LABS: Amphetamine Screen Urine Negative (Negative); Barbiturate Screen Urine Negative (Negative); Benzodiazepines Screen Urine Negative (Negative); Cannabinoid Screen Urine Negative (Negative); Cocaine Screen Urine Negative (Negative); Methadone Screen Urine Negative (Negative); Opiate Screen Urine Negative (Negative); Phencyclidine Screen Urine Negative (Negative)
[2021-08-14] MEDS: MECLIZINE HCL 25 MG TABLET PO (01:38)
[2021-08-14 02:10] VITALS: BP 133/68; PULSE 68; RESP 16; O2SAT 98
== END 2021-08-14 02:11 | disposition home or self-care (01) ==
PROVIDERS: Emergency Provider Emergency Medicine
DX: O99.345 Other mental disorders complicating the puerperium (principal); F53.0 Postpartum depression
CPT/HCPCS: 36415; 80053; 80307; 81001; 81025; 84443; 85025; 87086; 87088; 87147; 99284; A9270

== ENCOUNTER 2021-08-16 16:42 | Emergency (ER) | payer BC, SELFPAY ==
[2021-08-16 16:59] VITALS: BP 147/99; PULSE 103; RESP 20; TEMP 36.7; O2SAT 98
--- NOTE | 2021-08-16 17:13 | PC.NURSE ---
Pt speaking with pt at this time. Pt states i feel like im having post psychosis, i am hearing things, i hear babies cry that aren't there, i felt like i was gonna yesterday, i even wrote a letter to my kids because i was afraid i wasn't going to wake up. I have had a lot of trauma in my life. my was unplanned, im not with the father, the whole time i was i was mad, i would get mad at the baby when she would kick, i m a confucianist women but i even thought of or adoption. pt is very tearful. Pt best friend at bedside.
--- NOTE | 2021-08-16 17:27 | ECG_ITS ---
Measurements Intervals [place] Rate: 83 P: 29 TX: 142 QRS: 18 QRSD: 89 T: 14 QT: 347 QTc: 410 Interpretive Statements SINUS RHYTHM WITH SINUS ARRHYTHMIA BASELINE WANDER- V1-V3 NORMAL ECG Electronically Signed On 08-16-2021 20:14:45 FIELD ADVISOR by Rogelio Lane D.O.
--- NOTE | 2021-08-16 18:14 | ED.PSYCH ---
HPI - Psych General Chief Complaint: Psychiatric Symptoms Stated Complaint: will not say Time Seen by Provider: 08/16/21 17:07 Source: patient History of Present Illness HPI Narrative: Patient presents for psychiatric evaluation. Patient bela she was seen a couple days ago diagnosed with depression has been on Zoloft for approximately 1 week. She feels like her symptoms are getting worse and think she should be admitted to a psychiatric facility. Reports she is very anxious and thinks she is going to she wrote a letter to her children in case she is going to and she has a sensation that she will not wake up. She also reports auditory visual hallucinations. She hears the phone ringing and hears child crying when there is no child crying and no phone ringing. She also reports she saw a demon . She denies any thoughts of hurting herself or hurting others which reports she is feeling forgetful and is concerned for her hallucinations. She denies taking anything in attempt to harm herself today. She is taken only her prescription medications as instructed Related Data Home Medications Medication Instructions Recorded Confirmed PNV cmb#95-ferrous fumarate-FA 1 tablet PO DAILY 06/12/21 06/12/21 [] sertraline 50 mg PO DAILY 08/16/21 08/16/21 Allergies Allergy/AdvReac Type Severity Reaction Status Date / Time No Known Allergies Allergy Verified 08/16/21 17:19 Review of Systems Review of Systems: CONSTITUTIONAL: Denies fever, chills, or sweats. EYES: Denies visual changes, redness, or discharge. ENT: Denies rhinorrhea, congestion, sore throat, or otalgia. CARDIOVASCULAR: Denies chest pain, palpitations, or edema. RESPIRATORY: Denies cough or dyspnea. GASTROINTESTINAL: Denies abdominal pain, nausea, vomiting, or diarrhea. GENITOURINARY: Denies dysuria or hematuria. SKIN: Denies rash or itching. MUSCULOSKELETAL: Denies back pain, joint pain, or myalgia. NEUROLOGIC: Denies headache, numbness, dizziness, or weakness. PSYCHIATRIC: Denies anxiety or depression. All systems reviewed & are unremarkable except as noted in HPI and below PMFSH Past Medical History Medical History Anxiety Cholecystectomy planned Surgical History Surgical History History of sleeve gastrectomy Family History Family History Mother Hypertension Lymphoma Social History Social History Smoking status: Never smoker Alcohol intake: current Substance use: never Substance use type: does not use Spiritual care concerns: No Exam Narrative: GENERAL: Well-appearing, well-nourished, and in no acute distress. HEAD: Normocephalic, atraumatic. EYES: PERRLA and EOMI. ENT: Nares clear, no rhinorrhea or epistaxis. Mucous membranes moist. NECK: Supple. No masses. No JVD CHEST: Clear to auscultation. No respiratory distress. No wheezes rales or rhonchi HEART: Regular rate and rhythm. No murmur heard. Normal peripheral pulses. ABDOMEN: Soft, nontender, nondistended, normal active bowel sounds. EXTREMITIES: Normal range of motion. No edema. SKIN: Warm, dry, no rash. NEURO: No focal deficits. Alert and oriented x3. PSYCH: Normal mood and affect. Course Reevaluation(s) Reevaluation #1: Patient's labs returned patient is medically cleared and appropriate for crisis evaluation. Patient was signed out to Dr. Lopez pending crisis evaluation Date: 08/16/21 Time: 18:55 Vital Signs Vital signs: Vital Signs Temperature 36.7 C 08/16/21 16:59 Pulse Rate 103 H 08/16/21 16:59 Respiratory Rate 20 08/16/21 16:59 Blood Pressure 147/99 H 08/16/21 16:59 Pulse Oximetry 98 08/16/21 16:59 Temperature 36.7 C 08/16/21 16:59 Pulse Rate 103 H 08/16/21 16:59 Respiratory Rate 20
[2021-08-16 18:16] LABS: Basophils Percent Auto 0.3 % (0.2-1.2); Eosinophils Percent Auto 0.3 % (0-4.4); Hematocrit 42.1 % (37.0-47.0); Hemoglobin 13.9 g/dL (12.0-15.0); Immature Granulocyte Absolute 0.01 K/mm3 (0.00-0.031); Immature Granulocyte Percent A 0.2 % (0-0.5); Lymphocytes Absolute Auto 1.25 K/mm3 (0.9-3.2); Lymphocytes Percent Auto 19.6 % (18.3-44.2); Mean Corpuscular Hemoglobin 33.7 pg (26-34); Mean Corpuscular Volume 101.9 fl (80-100); Mean Platelet Volume 8.3 fl (7.4-10.4); Monocytes Absolute Auto 0.5 K/mm3 (0.1-0.6); Monocytes Percent Auto 7.7 % (2.6-8.5); Neutrophils Absolute Auto 4.6 K/mm3 (1.3-6.7); Neutrophils Percent Auto 71.9 % (45.5-73.1); Platelet Count Result 200 k/mm3 (150-375); Red Blood Count 4.13 M/mm3 (4.2-5.4); Red Cell Distribution Width 12.9 % (11.5-14.5); White Blood Count 6.4 K/mm3 (4.5-10.0)
[2021-08-16 18:26] LABS: Acetaminophen < 10 ug/mL (10-30); Alanine Aminotransferase 43 U/L (4-35); Albumin Level 4.2 g/dL (3.5-5.1); Alkaline Phosphatase 108 U/L (38-126); Anion Gap 8 mmol/L (8-16); Aspartate Amino Transferase 37 U/L (14-36); Bilirubin,Total 0.8 mg/dL (0.2-1.3); Blood Urea Nitrogen 10 mg/dL (7-17); Calcium 10.1 mg/dL (8.4-10.2); Carbon Dioxide 26 mmol/L (22-30); Chloride 102 mmol/L (98-107); Estimated CRCL calculation 112 ml/min; Estimated Glomerular Filt Rate > 60; Ethanol < 10 mg/dL (<10); Glucose 99 mg/dL (65-110); Salicylate < 1.0 mg/dL (2-20); Sodium 136 mmol/L (137-145)
[2021-08-16 19:53] LABS: Add Urine Microscopic? YES; Appearance Urine Cloudy (Clear); Bacteria Urine Trace /hpf; Bilirubin Urine Negative (Negative); Blood Urine 2+ (Negative); Color Urine Yellow (Yellow); Glucose Urine UA Negative (Negative); Ketones Urine 1+ mg/dL (Negative); Leukocyte Esterase Ur Trace LEU/UL (Negative); Mucus Urine Few /lpf; Nitrate Urine Negative (Negative); Protein Urine 1+ mg/dL (Negative); Squamous Epithelial Cell Urine Many /hpf (Few)
[2021-08-16 19:55] LABS: Specific Grav Ur 1.031 (1.001-1.035)
[2021-08-16 21:00] LABS: Amphetamine Screen Urine Negative (Negative); Barbiturate Screen Urine Negative (Negative); Benzodiazepines Screen Urine Negative (Negative); Cannabinoid Screen Urine Negative (Negative); Cocaine Screen Urine Negative (Negative); Methadone Screen Urine Negative (Negative); Opiate Screen Urine Negative (Negative); Phencyclidine Screen Urine Negative (Negative)
--- NOTE | 2021-08-16 21:00 | PC.NURSE ---
pt medically clear, please contact crisis at this time. crisis here for another pt and notified of this patient.
--- NOTE | 2021-08-16 21:11 | PC.NURSE ---
this rn notified crisis hotline at this time. emergency worker already on property and is aware of patient but they do need a phone call per emergency worker jackson.
--- NOTE | 2021-08-16 22:13 | PC.NURSE ---
powder worker in room with pt at this time.
--- NOTE | 2021-08-16 23:04 | PC.NURSE ---
per fellmongery worker pt needs inpatient care, crisis will begin looking for placement.
--- NOTE | 2021-08-16 23:09 | PC.NURSE ---
insulation worker Mitra devlin and kaz have stated they are full and that julien will call back for placement. Mitra states she will be following this case and her number is [phone]
[2021-08-17 00:02] LABS: EDCOVIDSCREEN Negative (Negative)
--- NOTE | 2021-08-17 00:20 | PC.NURSE ---
pt presenting with paranoid delusions at this time stating I can hear all of you talking about me out there, saying how you'll call the second crusher on me and how i'm doing meth, but I've never done meth before in my life. DAVID borges notified, order for ativan given.
[2021-08-17] MEDS: LORazepam (*CRX) 1 MG TABLET PO (00:33)
[2021-08-17 00:34] VITALS: BP 132/71; PULSE 83; RESP 16; O2SAT 97
--- NOTE | 2021-08-17 00:43 | PC.NURSE ---
pt information faxed to [facility] at this time.
--- NOTE | 2021-08-17 02:47 | PC.NURSE ---
diane echeverria called stating they needed UDS, bedside , and insurance information, those were faxed at this time.
--- NOTE | 2021-08-17 06:13 | PC.NURSE ---
06:04 Called [facility] for BLS transport to [facility] [address], [place] [address]. Spoke with Sugar, she provided ETA of 9:00 - 9:30 today.
[2021-08-17 07:30] VITALS: BP 130/65; PULSE 70; RESP 15; O2SAT 97
--- NOTE | 2021-08-17 07:32 | PC.NURSE ---
Pt taken by security and emanations analysis technician to TR to shower.
[2021-08-17 09:00] VITALS: BP 135/71; PULSE 78; RESP 18; O2SAT 100
--- NOTE | 2021-08-17 09:16 | PC.NURSE ---
noc laboratory secretary let day laboratory secretary know that [facility] will be taking pt to [facility] near [place].
--- NOTE | 2021-08-17 09:28 | PC.NURSE ---
[facility] arrived to transfer pt to [facility] near [place]. crew is aware of the facility pt is being transferred to.
--- NOTE | 2021-08-17 09:44 | PC.NURSE ---
report of pt was called prior to this Rn arrival by CECE Newton
== END 2021-08-17 09:44 ==
PROVIDERS: Emergency Medicine; Emergency Provider Emergency Medicine; PCP Obstetrics & Gynecology
DX: O99.345 Other mental disorders complicating the puerperium (principal); F53.0 Postpartum depression; Z20.822 Contact with and (suspected) exposure to COVID-19
CPT/HCPCS: 36415; 80053; 80307; 81001; 81025; 84443; 85025; 87086; 87088; 87426; 93005; 99285; A9270; C9803

== ENCOUNTER 2021-11-30 16:39 | Emergency (ER) | payer BC, SELFPAY ==
[2021-11-30 16:45] VITALS: BP 107/57; PULSE 67; RESP 16; TEMP 36.6; O2SAT 100
--- NOTE | 2021-11-30 17:41 | PC.NURSE ---
patient wandering in the hallway. a institutional aide was in the hallway who she does not know and she requested to speak with him privately. he is currently speaking with patient at this time. staff sitter at bedside for elopement risk. continues to deny SI/HI
--- NOTE | 2021-11-30 18:06 | PC.NURSE ---
patient continues to say that she wants to leave. CLINICAL DOCUMENT IMPROVEMENT EDUCATOR aware and consulted with Dr. Dickson. patient is not allowed to leave at this time. staff sitter at beside for elopement risk. She gave the name of the chief digital media officer that called EMS, Henrry Short. Officer Han called back, he states that patient said, I want to hurt myself . he reports that it was a vague statement and did not go into details. He is speaking with CLINICAL DOCUMENT IMPROVEMENT EDUCATOR Winter at this time
[2021-11-30 18:22] LABS: Basophils Percent Auto 0.4 % (0.2-1.2); Eosinophils Percent Auto 0.6 % (0-4.4); Hematocrit 43.9 % (37.0-47.0); Immature Granulocyte Absolute 0.02 K/mm3 (0.00-0.031); Immature Granulocyte Percent A 0.3 % (0-0.5); Lymphocytes Percent Auto 43.2 % (18.3-44.2); Mean Corpuscular HGB Conc 31.9 g/dl (32-36); Mean Corpuscular Hemoglobin 30.2 pg (26-34); Mean Corpuscular Volume 94.6 fl (80-100); Mean Platelet Volume 8.7 fl (7.4-10.4); Monocytes Absolute Auto 0.3 K/mm3 (0.1-0.6); Monocytes Percent Auto 4.9 % (2.6-8.5); Neutrophils Absolute Auto 3.4 K/mm3 (1.3-6.7); Neutrophils Percent Auto 50.6 % (45.5-73.1); Platelet Count Result 228 k/mm3 (150-375); Red Blood Count 4.64 M/mm3 (4.2-5.4); Red Cell Distribution Width 13.8 % (11.5-14.5); White Blood Count 6.7 K/mm3 (4.5-10.0)
[2021-11-30] MEDS: hydrOXYzine HCL 25 MG TABLET PO (18:29)
[2021-11-30 18:35] LABS: Alanine Aminotransferase 19 U/L (4-35); Albumin Level 4.4 g/dL (3.5-5.1); Alkaline Phosphatase 111 U/L (38-126); Anion Gap 12 mmol/L (8-16); Aspartate Amino Transferase 33 U/L (14-36); Bilirubin,Total 0.4 mg/dL (0.2-1.3); Blood Urea Nitrogen 7 mg/dL (7-17); Calcium 8.6 mg/dL (8.4-10.2); Carbon Dioxide 27 mmol/L (22-30); Chloride 104 mmol/L (98-107); Estimated CRCL calculation 116 ml/min; Estimated Glomerular Filt Rate > 60; Glucose 89 mg/dL (65-110); Sodium 143 mmol/L (137-145)
[2021-11-30 18:47] LABS: Ethanol 246 mg/dL (<10)
[2021-11-30] MEDS: LORazepam INJ (*CRX) 2 MG/ML VIAL IM (19:06)
[2021-11-30] MEDS: HALOPERIDOL LACTATE 5 MG/ML VIAL IM (19:06)
--- NOTE | 2021-11-30 19:11 | PC.NURSE ---
patient is uncooperative. [place] police department and security called for assistance. attempted to college service officer Han to fill out an affidavit and he is off work. patient willingly took IM medication without resisting. staff sitter at bedside. [place] police officers left and security is still present
[2021-11-30 19:48] LABS: Add Urine Microscopic? YES; Appearance Urine Clear (Clear); Bacteria Urine Trace /hpf; Bilirubin Urine Negative (Negative); Blood Urine Negative (Negative); Color Urine Yellow (Yellow); Glucose Urine UA Negative (Negative); Ketones Urine Trace mg/dL (Negative); Leukocyte Esterase Ur 1+ LEU/UL (Negative); Mucus Urine Few /lpf; Nitrate Urine Negative (Negative); Protein Urine Negative (Negative); Squamous Epithelial Cell Urine Many /hpf (Few); Urobilinogen Urine Negative mg/dL (<2.0); WBC Urine 51-75 /hpf
[2021-11-30 20:08] LABS: Amphetamine Screen Urine Negative (Negative); Barbiturate Screen Urine Negative (Negative); Benzodiazepines Screen Urine Negative (Negative); Cannabinoid Screen Urine Negative (Negative); Cocaine Screen Urine Negative (Negative); Methadone Screen Urine Negative (Negative); Opiate Screen Urine Negative (Negative); Phencyclidine Screen Urine Negative (Negative)
--- NOTE | 2021-11-30 21:58 | PC.NURSE ---
patient sleeping. staff sitter at bedside
[2021-11-30 23:00] VITALS: BP 91/54; PULSE 110; RESP 20; O2SAT 94
--- NOTE | 2021-11-30 23:11 | PC.NURSE ---
Assuming care of pt.
[2021-11-30] MEDS: LORazepam (*CRX) 0.5 MG TABLET 1 MG PO (23:32)
[2021-12-01 01:19] VITALS: BP 113/73; PULSE 106; RESP 18; O2SAT 94
--- NOTE | 2021-12-01 02:28 | ED.PSYCH ---
HPI - Psych General Chief Complaint: Psychiatric Symptoms <Sisi Mckeon APRN - Last Filed: 12/01/21 02:46> Stated Complaint: Anxiety <Sisi Mckeon APRN - Last Filed: 12/01/21 02:46> Time Seen by Provider: 11/30/21 17:04 <Sisi Mckeon APRN - Last Filed: 12/01/21 02:46> Source: patient <Sisi Lakeisha Mckeon APRN - Last Filed: 12/01/21 02:46> Mode of arrival: ambulatory <Sisi Mckeon APRN - Last Filed: 12/01/21 02:46> Limitations: other <Sisi Mckeon APRN - Last Filed: 12/01/21 02:46> History of Present Illness HPI Narrative: 36 year old female brought here by EMS today with concerns of wanting to hurt herself. Patient states she is unsure why she is here. Says she is just sad. Patient had a conversation with Officer Henrry Short of the [facility] Police department. He had concerns and called 911. Patient denies SI/HI. Will not make eye contact and states she wants to leave. Patient says she went to her [employer] school today to talk to her and ended up talking to Officer Han. She says she told him she was sad. Per Officer she seemed tearful, she was at the school where her child goes to see her , was denied due to DCFS taking parental rights from her. He asked her if she wanted to hurt herself and she said yes. Patient would not answer if she wanted to kill herself. Patient with history significant for post depression and was admitted to [facility]. Patient states she was put on zoloft and is still taking them but never followed up. Patient has not followed up with anyone. During assessment patient would not keep eye contact, seemed easily excitable and almost manic. Patient requesting anxiety meds but wants to be discharge. Patient refused SI/HI many times. Patient not able to be redirected. She is focused on leaving and that she is not suicidal or homicidal. <Sisi Mckeon APRN - Last Filed: 12/01/21 02:46> Related Data Home Medications: Home Medications Medication Instructions Recorded Confirmed PNV cmb#95-ferrous fumarate-FA 1 tablet PO DAILY 06/12/21 06/12/21 [] sertraline 50 mg PO DAILY 08/16/21 08/16/21 <Sisi Mckeon PLATEN PRESS FEEDER - Last Filed: 12/01/21 02:46> Allergies/Adverse Reactions: Allergies Allergy/AdvReac Type Severity Reaction Status Date / Time No Known Allergies Allergy Verified 08/16/21 17:19 <Sisi Mckeon PLATEN PRESS FEEDER - Last Filed: 12/01/21 02:46> Review of Systems Review of Systems: CONSTITUTIONAL: Denies fever, chills, or sweats. EYES: Denies visual changes, redness, or discharge. ENT: Denies rhinorrhea, congestion, sore throat, or otalgia. CARDIOVASCULAR: Denies chest pain, palpitations, or edema. RESPIRATORY: Denies cough or dyspnea. GASTROINTESTINAL: Denies abdominal pain, nausea, vomiting, or diarrhea. GENITOURINARY: Denies dysuria or hematuria. SKIN: Denies rash or itching. MUSCULOSKELETAL: Denies back pain, joint pain, or myalgia. NEUROLOGIC: Denies headache, numbness, dizziness, or weakness. PSYCHIATRIC: Denies anxiety or depression. <Sisi Mckeon PLATEN PRESS FEEDER - Last Filed: 12/01/21 02:46> [facility] Past Medical History Medical History: Medical History Anxiety Cholecystectomy planned <Sisi Mckeon PLATEN PRESS FEEDER - Last Filed: 12/01/21 02:46> Surgical History Surgical History: Surgical History History of sleeve gastrectomy <Sisi Mckeon PLATEN PRESS FEEDER - Last Filed: 12/01/21 02:46> Family History Family History: Family History Mother Hypertension Lymphoma <Sisi Mckeon PLATEN PRESS FEEDER - Last Filed: 12/01/21 02:46> Social History Social History: Social History Smoking status: Never smoker Alcohol intake: current Substance use: never Substance use type: does not use Spiritual care con
[2021-12-01 05:10] VITALS: BP 120/83; PULSE 94; RESP 18; O2SAT 96
[2021-12-01 05:37] LABS: Ethanol < 10 mg/dL (<10)
--- NOTE | 2021-12-01 07:25 | PC.NURSE ---
[facility] evaluating patient.
[2021-12-01] MEDS: LORazepam (*CRX) 0.5 MG TABLET PO (08:11)
--- NOTE | 2021-12-01 08:26 | PC.NURSE ---
Patient placed on safety plan. Patient provided belongings and sitter removed. Patient to be discharged.
--- NOTE | 2021-12-01 08:47 | PC.NURSE ---
care coordination contacted to assist in transport
== END 2021-12-01 09:00 | disposition home or self-care (01) ==
PROVIDERS: Nurse Practitioner Family; Emergency Provider Emergency Medicine; PCP Obstetrics & Gynecology
DX: F10.129 Alcohol abuse with intoxication, unspecified (principal); Y90.8 Blood alcohol level of 240 mg/100 ml or more; F41.9 Anxiety disorder, unspecified; Z98.84 Bariatric surgery status
CPT/HCPCS: 36415; 80053; 80307; 81001; 81025; 84443; 85025; 87086; 87088; 96372; 99284; A9270; J1630; J2060

== ENCOUNTER 2021-12-03 14:29 | Emergency (ER) | payer BC, SELFPAY ==
--- NOTE | 2021-12-03 14:38 | ED.PSYCH ---
HPI - Psych General Chief Complaint: Psychiatric Symptoms <Sisi Mckeon APRN - Last Filed: 12/03/21 19:08> Stated Complaint: psych <Sisi Mckeon APRN - Last Filed: 12/03/21 19:08> Time Seen by Provider: 12/03/21 14:33 <Sisi Mckeon APRN - Last Filed: 12/03/21 19:08> Source: patient <Sisi Mckeon APRN - Last Filed: 12/03/21 19:08> Mode of arrival: ambulatory <Sisi Mckeon APRN - Last Filed: 12/03/21 19:08> Limitations: no limitations <Sisi Mckeon APRN - Last Filed: 12/03/21 19:08> History of Present Illness HPI Narrative: 36-year-old female brought here today by EMS. Patient states she is unsure why she is here. Per nurse EMS was called out to the residence by the patient with concerns of suicidal thoughts. Patient denies SI HI at this time wants to call her sister and will not talk about anything else. Patient avoids eye contact. Patient seems withdrawn. Patient recently in the ED here for similar complaints. Patient denies any alcohol usage today. <Sisi Mckeon APRN - Last Filed: 12/03/21 19:08> Related Data Home Medications: Home Medications Medication Instructions Recorded Confirmed [facility]#95-ferrous fumarate-FA 1 tablet PO DAILY 06/12/21 06/12/21 [] sertraline 50 mg PO DAILY 08/16/21 08/16/21 <Sisi Mckeon APRN - Last Filed: 12/03/21 19:08> Allergies/Adverse Reactions: Allergies Allergy/AdvReac Type Severity Reaction Status Date / Time No Known Allergies Allergy Verified 08/16/21 17:19 <Sisi Mckeon APRN - Last Filed: 12/03/21 19:08> Review of Systems Review of Systems: CONSTITUTIONAL: Denies fever, chills, or sweats. EYES: Denies visual changes, redness, or discharge. ENT: Denies rhinorrhea, congestion, sore throat, or otalgia. CARDIOVASCULAR: Denies chest pain, palpitations, or edema. RESPIRATORY: Denies cough or dyspnea. GASTROINTESTINAL: Denies abdominal pain, nausea, vomiting, or diarrhea. GENITOURINARY: Denies dysuria or hematuria. SKIN: Denies rash or itching. MUSCULOSKELETAL: Denies back pain, joint pain, or myalgia. NEUROLOGIC: Denies headache, numbness, dizziness, or weakness. PSYCHIATRIC: Denies anxiety or depression. <Sisi Mckeon APRN - Last Filed: 12/03/21 19:08> PMFSH Past Medical History Medical History: Medical History Anxiety Cholecystectomy planned <Sisi Mckeon APRN - Last Filed: 12/03/21 19:08> Surgical History Surgical History: Surgical History History of sleeve gastrectomy <Sisi Mckeon APRN - Last Filed: 12/03/21 19:08> Family History Family History: Family History Mother Hypertension Lymphoma <Sisi Mckeon APRN - Last Filed: 12/03/21 19:08> Social History Social History: Social History Smoking status: Never smoker Alcohol intake: current Substance use: never Substance use type: unknown Spiritual care concerns: No <Sisi Mckeon APRN - Last Filed: 12/03/21 19:08> Exam Narrative: GENERAL: Well-appearing, well-nourished, and in no acute distress. HEAD: Normocephalic, atraumatic. EYES: PERRLA and EOMI. ENT: Nares clear, no rhinorrhea or epistaxis. Mucous membranes moist. Oropharynx without tonsillar hypertrophy exudate or other lesions. Bilateral TMs pearly gillespie nonbulging NECK: Supple. No adenopathy or masses. No carotid bruits or JVD CHEST: Clear to auscultation. No respiratory distress. No wheezes rales or rhonchi HEART: Regular rate and rhythm. No murmur heard. Normal peripheral pulses. ABDOMEN: Soft, nontender, nondistended, normal active bowel sounds. EXTREMITIES: Normal range of motion. No edema. SKIN: Warm, dry, no rash. NEURO: No focal deficits. Alert and oriented x3. PSYCH: Patient is wit
[2021-12-03 14:47] VITALS: BP 125/88; PULSE 81; RESP 16; O2SAT 100
[2021-12-03 14:49] VITALS: BP 125/88; PULSE 81; RESP 18; TEMP 36.6; O2SAT 92
[2021-12-03 14:53] LABS: Basophils Percent Auto 0.4 % (0.2-1.2); Eosinophils Percent Auto 0.3 % (0-4.4); Hematocrit 42.7 % (37.0-47.0); Hemoglobin 13.7 g/dL (12.0-15.0); Immature Granulocyte Absolute 0.02 K/mm3 (0.00-0.031); Immature Granulocyte Percent A 0.3 % (0-0.5); Lymphocytes Absolute Auto 2.81 K/mm3 (0.9-3.2); Lymphocytes Percent Auto 39.9 % (18.3-44.2); Mean Corpuscular HGB Conc 32.1 g/dl (32-36); Mean Corpuscular Volume 93.4 fl (80-100); Mean Platelet Volume 8.6 fl (7.4-10.4); Monocytes Absolute Auto 0.4 K/mm3 (0.1-0.6); Neutrophils Absolute Auto 3.8 K/mm3 (1.3-6.7); Neutrophils Percent Auto 53.1 % (45.5-73.1); Platelet Count Result 215 k/mm3 (150-375); Red Blood Count 4.57 M/mm3 (4.2-5.4); Red Cell Distribution Width 13.8 % (11.5-14.5); White Blood Count 7.1 K/mm3 (4.5-10.0)
[2021-12-03 15:01] LABS: Add Urine Microscopic? YES; Appearance Urine Clear (Clear); Bacteria Urine Trace /hpf; Bilirubin Urine Negative (Negative); Blood Urine 1+ (Negative); Color Urine Yellow (Yellow); Glucose Urine UA Negative (Negative); Ketones Urine 1+ mg/dL (Negative); Leukocyte Esterase Ur Trace LEU/UL (Negative); Mucus Urine Rare /lpf; Nitrate Urine Negative (Negative); Protein Urine Negative (Negative); RBC Urine 0-2 /hpf (0-2); Specific Grav Ur 1.005 (1.001-1.035); Squamous Epithelial Cell Urine Few /hpf (Few); Urobilinogen Urine Negative mg/dL (<2.0)
[2021-12-03 15:06] LABS: Acetaminophen < 10 ug/mL (10-30); Salicylate < 1.0 mg/dL (2-20)
--- NOTE | 2021-12-03 15:08 | PC.NURSE ---
RN called and spoke with Pt Sister Jess at [phone], per family Pt was Dx with psycho disorder and per family Pt is in need of second shot of Invega as Pt has missed dose. Jess also reported that Pt was to arrive in [place] with family tomorrow for two month visit and Family is unaware of how Pt will be getting to the airport at this time and or able to fly along. Per Sister she will be speaking with brother and will return phone call to see if patient is able to get a ride too the airport. Sis also reported that Pt has made comments of I feel like giving up I lost everything Sister stated Pt has not stated she had a plan to harm self or others nor has Pt made comments that she wanted to end her life. This RN will pass information on to MD and update on family concerns and await orders for ongoing elevation and treatment. Pt is stable at this time with sitter at bedside.
[2021-12-03 15:20] LABS: Ethanol 354 mg/dL (<10)
[2021-12-03 15:22] LABS: Amphetamine Screen Urine Negative (Negative); Barbiturate Screen Urine Negative (Negative); Benzodiazepines Screen Urine Negative (Negative); Cannabinoid Screen Urine Negative (Negative); Cocaine Screen Urine Negative (Negative); Methadone Screen Urine Negative (Negative); Opiate Screen Urine Negative (Negative); Phencyclidine Screen Urine Negative (Negative)
[2021-12-03 15:24] LABS: Alanine Aminotransferase 17 U/L (4-35); Albumin Level 4.6 g/dL (3.5-5.1); Alkaline Phosphatase 149 U/L (38-126); Anion Gap 12 mmol/L (8-16); Aspartate Amino Transferase 29 U/L (14-36); Bilirubin,Total 0.6 mg/dL (0.2-1.3); Blood Urea Nitrogen 8 mg/dL (7-17); Calcium 8.7 mg/dL (8.4-10.2); Carbon Dioxide 26 mmol/L (22-30); Chloride 103 mmol/L (98-107); Estimated CRCL calculation 131 ml/min; Estimated Glomerular Filt Rate > 60; Glucose 103 mg/dL (65-110); Potassium 4.6 mmol/L (3.4-5.0); Sodium 141 mmol/L (137-145)
[2021-12-03 15:55] LABS: Thyroid Stimulating Hormone 0.894 uIU/mL (0.465-4.680)
[2021-12-03] MEDS: HALOPERIDOL LACTATE 5 MG/ML VIAL (16:41)
[2021-12-03] MEDS: LORazepam INJ (*CRX) 2 MG/ML VIAL (16:42)
--- NOTE | 2021-12-03 16:42 | PC.NURSE ---
Pt requesting medication to help with her anxiety vorb from [facility] for Haldol 5 mg and Ativan 2mg IM x1
--- NOTE | 2021-12-03 17:56 | PC.NURSE ---
pt unable to be screened by Crisis d/t Etoh level next Etoh lab draw approx 12 hrs from now. pt does deny thoughts of self harm, though endorses depression.
--- NOTE | 2021-12-03 20:30 | PC.NURSE ---
commercial journeyman electrician and erp dr shepherd had a conversation about sitter needs. It was determined that at this time, we do not need a sitter.
--- NOTE | 2021-12-03 20:31 | PC.NURSE ---
Please notify sister/mother if patient is transferred to another facility or discharged.
[2021-12-03 23:57] VITALS: BP 110/72; PULSE 98; RESP 16; O2SAT 98
--- NOTE | 2021-12-04 00:45 | PC.NURSE ---
DAVID Shields aware that patient wants to leave and patient states , i am going to have to leave so I can go drink again to calm down
--- NOTE | 2021-12-04 00:46 | PC.NURSE ---
Per erp dr shepherd, pt is now an elopement risk. Sitter will be placed at this time.
--- NOTE | 2021-12-04 03:44 | PC.NURSE ---
sitter at bedside. Patient sleeping.
--- NOTE | 2021-12-04 05:13 | PC.NURSE ---
sitter at bedside. blood being drawn for labs at this time.
[2021-12-04 05:51] LABS: Ethanol < 10 mg/dL (<10)
--- NOTE | 2021-12-04 05:55 | PC.NURSE ---
pt medically clear at this time. ok to contact crisis.
--- NOTE | 2021-12-04 05:57 | PC.NURSE ---
Kurt at crisis notified, will send someone out sukh.
--- NOTE | 2021-12-04 06:15 | PC.NURSE ---
Patient states, I want to leave I have to get to my job DAVID Joseph aware. DAVID Joseph wants patient to be seen by Crisis before discharge because patient keeps stating , If I do not get something for my anxiety I am going to go home and drink more wine
[2021-12-04 06:18] LABS: EDCOVIDSCREEN Negative (Negative)
--- NOTE | 2021-12-04 07:03 | PC.NURSE ---
Patient on phone outside room. Patient is acting anxious and keeps stating, I have to get to my job. I am not suicidal I do not need to be here. I need to get job. I just need to drink my red wine to help with my anxiety
[2021-12-04 07:13] VITALS: BP 130/81; PULSE 89; RESP 18; O2SAT 100
--- NOTE | 2021-12-04 07:14 | PC.NURSE ---
Patient asked this RN if she will be able to just leave. This RN advised patient to stay and talk to Crisis. Patient agreed to stay and talk to crisis.
== END 2021-12-04 08:25 | disposition home or self-care (01) ==
PROVIDERS: Nurse Practitioner Family; Emergency Provider Emergency Medicine
DX: F10.120 Alcohol abuse with intoxication, uncomplicated (principal); Y90.8 Blood alcohol level of 240 mg/100 ml or more; F41.9 Anxiety disorder, unspecified; Z20.822 Contact with and (suspected) exposure to COVID-19
CPT/HCPCS: 36415; 80053; 80307; 81001; 81025; 84443; 85025; 87426; 96374; 96375; 99284; C9803; J1630; J2060